=== PATIENT | female | born 1960 ===

== ENCOUNTER 2021-03-21 15:03 | Emergency (ER) | payer OTHER ==
[~2021-03-21] VITALS: Ht 149.9 cm; Wt 60.8 kg
[~2021-03-21 15:03] MED LIST: ORPH100T PO
[2021-03-21] MEDS ORDERED: ALTACE5 MG PO (15:45)
== END 2021-03-21 18:44 | disposition home or self-care (01) ==
LOC: ER 15:03
DX: R00.2 Palpitations (principal)

== ENCOUNTER 2021-05-19 00:31 | Emergency (ER) | payer OTHER ==
[~2021-05-19] VITALS: Ht 149.9 cm; Wt 59.0 kg
[~2021-05-19 00:31] MED LIST changes: +ALTACE5 MG PO
[2021-05-19] MEDS ORDERED: PEPCID AC20 MG PO (03:14)
[2021-05-19] MEDS ORDERED: ZOFRAN8 MG PO (03:14)
== END 2021-05-19 03:21 | disposition home or self-care (01) ==
LOC: ER 00:31
DX: R10.9 Unspecified abdominal pain (principal); R11.2 Nausea with vomiting, unspecified; I10 Essential (primary) hypertension